=== PATIENT | male | born 1960 | race Caucasian/White ===

== ENCOUNTER 2021-01-23 04:27 | Inpatient (IN) | payer OTHER ==
[~2021-01-23] VITALS: Ht 180.3 cm; Wt 144.7 kg
[2021-01-23] MEDS ORDERED: ALBU8HFA2 INH (04:40)
[2021-01-23 04:54] LABS: BASOPHILS ABSOLUTE AUTO 0.03 K/mm3 (0.00-0.23); BASOPHILS PERCENT AUTO 1 % (0-2); EOSINOPHILS ABSOLUTE AUTO 0.24 K/mm3 (0.00-0.68); EOSINOPHILS PERCENT AUTO 4 % (0-6); Hematocrit 44.2 % (37.0-53.0); Hemoglobin 14.6 g/dL (13.5-17.5); IMMATURE GRAN ABSOLUTE AUTO 0.03 K/mm3 (0.00-0.10); IMMATURE GRAN PERCENT AUTO 1 % (0-1); LYMPHOCYTES PERCENT AUTO 30 % (21-46); MONOCYTES ABSOLUTE AUTO 0.56 K/mm3 (0.16-1.47); MONOCYTES PERCENT AUTO 9 % (4-13); Mean Corpuscular HGB 31.7 pg (26.0-34.0); Mean Corpuscular Volume 96 fL (80-100); Mean Platelet Volume 11.2 fL (9.1-12.4); NEUTROPHILS ABSOLUTE AUTO 3.66 K/mm3 (1.96-9.15); NEUTROPHILS PERCENT AUTO 57 % (41-73); Platelet Count 234 K/mm3 (150-400); RDW Coefficient Variation 13.2 % (11.7-14.2); RDW Standard Deviation 46.8 fL (35.1-46.3); Red Blood Cell Count 4.61 M/mm3 (4.30-5.90); White Blood Cell Count 6.42 K/mm3 (4.00-11.30)
[2021-01-23 05:19] LABS: Alanine Aminotransfer (ALT/SGP 27 U/L (12-78); Albumin, Blood 3.2 g/dL (3.4-5.0); Albumin/Globulin Ratio 0.7 (0.8-1.8); Alk Phos 109 U/L (50-136); Anion Gap 6 mmol/L (6-16); Aspartate Aminotrans (AST/SGOT 28 U/L (12-37); Bilirubin, Total 0.2 mg/dL (0.1-1.0); Blood Urea Nitrogen 20 mg/dL (8-24); Bun/Creatinine Ratio 20.6 (12.0-20.0); CO2, Blood 26 mmol/L (21-32); Calcium, Blood 9.3 mg/dL (8.5-10.1); Chloride, Blood 110 mmol/L (98-108); Creatinine, Blood 0.97 mg/dL (0.60-1.20); Globulin, Blood 4.4 g/dL (2.2-4.0); Glomerular Filtration Rate >60 (60-); Glucose, Blood 137 mg/dL (70-99); Potassium, Blood 4.2 mmol/L (3.5-5.5); Sodium, Blood 142 mmol/L (136-145); Total Protein, Blood 7.6 g/dL (6.4-8.2); Troponin I 0.125 ng/mL (0.000-0.040)
[2021-01-23 08:10] LABS: Influenza A, PCR NEGATIVE (NEGATIVE); Influenza B, PCR NEGATIVE (NEGATIVE); Resp Syncytial Virus, PCR NEGATIVE (NEGATIVE); SARS-Cov-2 (COVID-19) PCR, MMC NEGATIVE (NEGATIVE)
--- NOTE | 2021-01-23 18:07 | NUR ---
RN SPOKE WITH DR. GAGE ON THE TELEPHONE ABOUT THE PATIENT'S HYPERTENSION. DR. GAGE SAID SHE WOULD ORDER PRN HYPERTENSIVES. THIS RN CALLED DR. GAGE AGAIN AND LEFT A VOICEMAIL REMINDING HER OF THE PATIENT'S HYPERTENSION AND ATTEMPTED TO CALL TWICE FOLLOWING THAT WITH NO NEW ORDERS OR REPLY. DR. MCBRIDE WAS CALLED BY THIS RN AT 1805 AND HE ORDERED TELEMETRY AND PRN LABETOLOL FOR SBP GREATER THAN 170 mm Hg.
--- NOTE | 2021-01-23 18:48 | NUR ---
PATIENT IS ALERT AND ORIENTED AND COOPERTATIVE WITH CARE. HE HAS BEEN HYPERTENSIVE SINCE ADMISSION. DR. GAGE AND REED ARE AWARE. PRN HYPERTENSIVES ORDERED. PATIENT IS ON TELEMETRY. NO C/O CP SINCE ON MEDICAL FLOOR. STRESS TEST ORDERED FOR TOMORROW. WILL CONTINUE TO MONITOR
--- NOTE | 2021-01-23 22:11 | NUR ---
PT ASKED THAT HE BE GIVEN AN INHALER THAT HE COULD KEEP IN HIS ROOM. BEING WITHOUT IT CAUSES HIM ANXIETY AND SETS OFF HIS ASTHMA ATTACKS, PER PT. SPOKE WITH DR. VAZQUEZ. ORDERED ALBUTEROL INHALER. PER DR VAZQUEZ, PT CAN KEEP INHALER IN HIS ROOM AND IS TO BE INSTRUCTED TO TELL RN WHEN HE USES IT. PT INSTRUCTED ON USE OF INHALER AND HE STS HE UNDERSTANDS.
--- NOTE | 2021-01-24 03:56 | NUR ---
SHIFT SUMMARY PT REQUESTED HE BE GIVEN INHALER TO KEEP AT BEDSIDE. ORDERED AND OK'D BY DR VAZQUEZ. PT REQUESTING FOOD, BUT WAS TOLD THAT HE HAS A STRESS TEST THIS AM AND IS NPO UNTIL THAT TIME. PT ALSO COMPLAINS OF THE ROOM BEING HOT. THIS RN GOT PT A PORTABLE FAN. PT INDEPENDENT IN ROOM AND WALKS THE HALLWAY. A&O X4. CALL LIGHT WITHIN REACH. WILL CONTINUE TO MONITOR.
[2021-01-24 07:58] LABS: CHOL/HDL RATIO 4.1; Cholesterol 180 mg/dL (50-200); HDL Cholesterol 44 mg/dL (>39); LDL/HDL RATIO 2.5; Low Density Lipoprotein Chol 111 mg/dL (0-110); Triglycerides 126 mg/dL (30-160); Very Low Density Lipoprot Chol 25 mg/dL (6-32)
--- NOTE | 2021-01-24 15:14 | NUR ---
Pt sitting on edge of bed upon arrival. Pt is A&OX4 and denies pain at this time. Pt reports recently moving from [place] to [facility]. He reports not being and has a son from a previous girlfriend. He reports frustaration regarding being pursued for past child support. Continued therapeutic listening and reviewed plan of care. Gentle education regarding disease process, trajectory of disease, and the importance of medical compliance. Pt expresses appreciation and reports no other concerns at this time. Palliative Care will remain available.
--- NOTE | 2021-01-24 16:50 | NUR ---
SHIFT SUMMARY PATIENT IS ALERT AND ORIENTED X4. PATIENT IS COOPERATIVE WITH CARE. PATIENT HAS BEEN HYPERTENSIVE MOST OF SHIFT AND MEDICATED PER EMAR. PATIENT HAS HAD FIRST PART OF STRESS TEST DONE THIS MORNING AND SECOND PART DUE TOMORROW AM. NO CAFFEINE AFTER 2000 TONIGHT FOR TEST. PATIENT HAS HAD NO COMPLAINTS OF PAIN, NAUSEA, VOMITTING, OR SOB THIS SHIFT. PATIENT HAS ONLY COMPLAINED OF HUNGER BEFORE TEST. CALL LIGHT IN PLACE. WILL MONITOR UNTIL SHIFT CHANGE.
--- NOTE | 2021-01-25 05:02 | NUR ---
A/OX4. DAY #2 OF STRESS TEST. INSTRUCTED NO CAFFINE AFTER 01/24. TROPS WERE TRENDING DOWN WELL HIS BPs. TELE: W/ PACs.
[2021-01-25] MEDS ORDERED: ASPI81CH PO (16:59)
[2021-01-25] MEDS ORDERED: ATORVASTATIN CA80 M1 PO (16:59)
[2021-01-25] MEDS ORDERED: CARV6.25 PO (17:00)
[2021-01-25] MEDS ORDERED: LISI20 PO (17:01)
--- NOTE | 2021-01-25 18:02 | NUR ---
PATIENT IS ALERT AND ORIENTED. PATIENT HAD SECOND PART OF STRESS TEST TODAY. DISCHARGE INFORMATION GIVEN AND UNDERSTOOD BY PATIENT. PATIENT WAS PICKED UP BY SEVEN FEATHERS [employer]INO TO PATIENTS TRUCK. NO ACUTE EVENTS THIS SHIFT. VITAL SIGNS REVIEWED.
== END 2021-01-25 18:00 | disposition home or self-care (01) | DRG 291 ==
LOC: ER 04:27 → ERHOLD 04:28 → MEDS 04:28
PROVIDERS: Emergency Medicine; Student in an Organized Health Care Education/Training Program; ADMIT Hospitalist
DX: I11.0 Hypertensive heart disease with heart failure (principal); J96.00 Acute respiratory failure, unspecified whether with hypoxia or hypercapnia; I50.21 Acute systolic (congestive) heart failure; I16.1 Hypertensive emergency; Z68.42 Body mass index [BMI] 45.0-49.9, adult; R07.9 Chest pain, unspecified; Z20.822 Contact with and (suspected) exposure to COVID-19; E66.01 Morbid (severe) obesity due to excess calories; E11.9 Type 2 diabetes mellitus without complications; J45.909 Unspecified asthma, uncomplicated; Z79.899 Other long term (current) drug therapy; I44.0 Atrioventricular block, first degree
CPT/HCPCS: 0241U; 36415; 71046; 78452; 80053; 80061; 83036; 83880; 84443; 84484; 85025; 93005; 93010; 93017; 94640; 94644; 94760; 96372; 96374; 96375; 99285-25; A9270; A9500; C8929; G0378; J0706; J1650; J2785; Q9957